=== PATIENT | male | born 1930 | race Caucasian/White ===

== ENCOUNTER 2016-11-10 10:02 | Inpatient (IN) | payer MEDICARE ==
[~2016-11-10] VITALS: Ht 170.2 cm; Wt 70.9 kg
[2016-11-10 10:09] VITALS: BP 126/72; PULSE 80; RESP 15; TEMP 98.3; O2SAT 98
[2016-11-10 11:07] LABS: AUTOMATED NEUTROPHIL # 4.9 TH/MM3 (1.8-7.7); BASOPHIL # 0.1 TH/MM3 (0-0.2); EOSINOPHIL # 0.2 TH/MM3 (0-0.4); EOSINOPHIL % 2.6 % (0.0-4.0); HEMATOCRIT 37.5 % (39.0-51.0); HEMO FLAGS DIFF FINAL; LYMPH % 18.2 % (9.0-44.0); LYMPHOCYTE # 1.3 TH/MM3 (1.0-4.8); MEAN CELL VOLUME 85.8 FL (80.0-100.0); MEAN CORPUSCULAR HEMOGLOBIN 28.9 PG (27.0-34.0); MEAN CORPUSCULAR HGB CONC 33.7 % (32.0-36.0); MONO % 9.1 % (0.0-8.0); NEUT % 69.1 % (16.0-70.0); PLATELET COUNT 127 TH/MM3 (150-450); RED BLOOD COUNT 4.37 MIL/MM3 (4.50-5.90); WHITE BLOOD COUNT 7.2 TH/MM3 (4.0-11.0)
--- NOTE | 2016-11-10 11:11 | RADRPT ---
EXAM DATE/TIME: 11/10/2016 10:58 [facility] COMPARISON: No previous studies available for comparison. INDICATIONS : Weakness. Possible CVA. MEDICAL HISTORY : Unobtainable. SURGICAL HISTORY : Unobtainable. ENCOUNTER: Initial ACUITY: 1 day PAIN SCORE: 2/10 LOCATION: Bilateral chest FINDINGS: A single view of the chest demonstrates the lungs to be symmetrically aerated without evidence of mas s, infiltrate or effusion. The cardiomediastinal contours are unremarkable. Osseous structures are intact. CONCLUSION: The lungs are clear. Alejandro Carter MD on November 10, 2016 at 11:09 Board Certified Radiologist. This report was verified electronically.
[2016-11-10 11:17] LABS: APTT (PATIENT) 29.3 SEC (24.3-30.1); PROTHROMBIN TIME - PATIENT 11.1 SEC (9.8-11.6)
[2016-11-10 11:27] LABS: ANION GAP 9 MEQ/L (5-15); AST (GOT) 13 U/L (15-37); BICARBONATE 26.1 MEQ/L (21.0-32.0); BLOOD UREA NITROGEN 28 MG/DL (7-18); CHLORIDE 105 MEQ/L (98-107); GLOMERULAR FILTRATION RATE 43 ML/MIN (>89); POTASSIUM 4.5 MEQ/L (3.5-5.1); SODIUM (NA) 140 MEQ/L (136-145)
[2016-11-10 11:31] LABS: ALKALINE PHOSPHATASE 97 U/L (45-117); ALT (GPT) 9 U/L (12-78); TOTAL BILIRUBIN ADULT 1.2 MG/DL (0.2-1.0)
--- NOTE | 2016-11-10 11:32 | RADRPT ---
EXAM DATE/TIME: 11/10/2016 11:16 [facility] COMPARISON: No previous studies available for comparison. INDICATIONS : Right lower extremity weakness. RADIATION DOSE: 56.35 CTDIvol (mGy) MEDICAL HISTORY : None SURGICAL HISTORY : None. ENCOUNTER: Initial ACUITY: 1 day PAIN SCALE: 0/10 LOCATION: cranial TECHNIQUE: Multiple contiguous axial images were obtained of the head. Using automated exposure control and adj ustment of the mA and/or kV according to patient size, radiation dose was kept as low as reasonably a chievable to obtain optimal diagnostic quality images. FINDINGS: CEREBRUM: The ventricles are normal for age. No evidence of midline shift, mass lesion, hemorrhage or acute in farction. No extra-axial fluid collections are seen. POSTERIOR FOSSA: The cerebellum and brainstem are intact. The 4th ventricle is midline. The cerebellopontine angle i s unremarkable. EXTRACRANIAL: The visualized portion of the orbits is intact. SKULL: Prominent apparent venous lakes are present in the diploic space in both occipital bones.. CONCLUSION: Intracranial contents are unremarkable. Prominent apparent venous lakes both occipit al bones. Cristhian Sharma MD FACR on November 10, 2016 at 11:29 Board Certified Radiologist. This report was verified electronically.
[2016-11-10 11:41] LABS: CREATINE KINASE 73 U/L (39-308)
[2016-11-10 11:52] VITALS: BP_SYST 170; BP_SYST 175; BP_DIAS 72; BP_DIAS 76; PULSE 44; PULSE 46; RESP 14; O2SAT 97; O2SAT 99
[2016-11-10 11:55] LABS: BLOOD, URINE NEG (NEG); COMMENT (UR) CULT NOT INDICATED; CULTURE IF INDICATED CULT NOT INDICATED; GLUCOSE,URINE NEG (NEG); GRANULAR CAST, URINE 2 /lpf; HYALINE CAST, URINE 1 /lpf (RARE); KETONE, URINE NEG (NEG); MUCUS URINE FEW /lpf (OCC); NITRITE,URINE NEG (NEG); URINE COLOR YELLOW (YELLW/STRAW)
--- NOTE | 2016-11-10 12:40 | PD ---
HPI Chief Complaint: Neuro Symptoms/ Deficits Time Seen by Provider: 11:09 Travel History International Travel<30 days: No Contact w/Intl Traveler<30days: No History of Present Illness HPI Patient is an 86-year-old male with hx of dementia and parkinson's disease; was brought to the emergency room by EMS for evaluation of TIA. As per EMS, family reported acute onset of right-sided weakness, dysarthria - reports that the symptoms lasted for about 5 minutes and resolved on its own. Reports history of TIA in the past. Patient reports that he was walking at the mall today, reports that his right leg felt weak, reports that his whole right side felt weak, family had to assist into a chair, reports that he could not speak well that is happening and symptoms resolved within 5 minutes. Patient denies any headache or dizziness at this time. Patient denies chest pain or shortness of breath. Patient with no fall or trauma to the head or neck. PFSH Past Medical History Tetanus Vaccination: Unknown Influenza Vaccination: Yes Social History Alcohol Use: No Tobacco Use: No Substance Use: No Allergies-Medications (Allergen,Severity, Reaction): Coded Allergies: Penicillin (Verified Allergy, Unknown, 11/10/16) PT HAS UNKNOWN REACTION Reported Meds & Prescriptions Reported Meds & Active Scripts Active Reported Vitamin B-12 (Cyanocobalamin) 2,500 Mcg Subl 2,500 Mcg SL DAILY Sinemet (Carbidopa-Levodopa) 25-100 Mg Tab 1 Tab PO QID Flomax (Tamsulosin HCl) 0.4 Mg Cap 0.4 Mg PO HS Gabapentin 400 Mg Cap 400 Cap PO HS Zantac (Ranitidine HCl) 150 Mg Tab 150 Mg PO DAILY Donepezil 10 Mg Tab 10 Mg PO HS Celebrex (Celecoxib) 200 Mg Cap 200 Mg PO BID Ocuvite (Multiple Vitamins W/ Minerals) 1 Tab 1 Tab PO DAILY Osteo Bi-Flex Regular Strength (Glucosamine-Chondroitin) 250-200 Tab 1 Tab PO DAILY Theratears Unit-Dose Opth Drops (Carboxymethylcellulose Sodium Opth Drops) 0.25 % Soln 1 Drop EACH EYE Q4H PRN Review of Systems General / Constitutional: No: Fever Eyes: No: Visual changes HENT: No: Headaches Cardiovascular: No: Chest Pain or Discomfort Respiratory: No: Shortness of Breath Gastrointestinal: No: Abdominal Pain Genitourinary: No: Dysuria Musculoskeletal: No: Pain Skin: No Rash Neurologic: Positive: Weakness, Slurred Speech Psychiatric: No: Depression Endocrine: No: Polydipsia Hematologic/Lymphatic: No: Easy Bruising Physical Exam Narrative GENERAL: No acute distress, nontoxic SKIN: Focused skin assessment warm/dry. HEAD: Atraumatic. Normocephalic. EYES: Pupils equal and round. No scleral icterus. No injection or drainage. ENT: No nasal bleeding or discharge. Mucous membranes pink and moist. NECK: Trachea midline. No JVD. CARDIOVASCULAR: Regular rate and rhythm. No murmur appreciated. RESPIRATORY: No accessory muscle use. Clear to auscultation. Breath sounds equal bilaterally. GASTROINTESTINAL: Abdomen soft, non-tender, nondistended. Hepatic and splenic margins not palpable. MUSCULOSKELETAL: No obvious deformities. No clubbing. No cyanosis. No edema. NEUROLOGICAL: Awake and alert. No obvious cranial nerve deficits. Motor grossly within normal limits. Normal speech. Cranial nerves II-12 grossly intact with no obvious deficits PSYCHIATRIC: Appropriate mood and affect; insight and judgment normal. Data Data Last Documented VS Vital Signs Date Time Temp Pulse Resp B/P Pulse Ox O2 Delivery O2 Flow Rate FiO2 11/10/16 11:52 Room Air 11/10/16 11:52 44 14 170/76 97 11/10/16 10:09 98.3 Orders Electrocardiogram (11/10/16 10:43) Prothrombin Time / Inr (Pt) (11/10/16 10:43) Act Partial Throm Time (Ptt) (11/10/16 10:43) Complete Blood Count With Diff (11/10/16 10:43) Comprehensive Metabolic Panel (11/10/16 10:43) Creatine Kinase (Cpk) (11/10/16 10:43) Troponin I (11/10/16 10:43) Urinalysis - C+S If Indicated (11/10/16 10:43) Ct Brain W/O Iv Contrast(Rout) (11/10/16 10:43) Chest, Single Ap (11/10/16 10:43) Ecg Monitoring (11/10/16 10:43) Iv Access Insert/Monitor (11/10/16 10:43) Oximetry (11/10/16 10:43) Aspirin (Aspirin) (11/10/16 12:45) Labs Laboratory Tests Test 11/10/16 11/10/16 10:50 11:15 White Blood Count 7.2 TH/MM3 Red Blood Count 4.37 MIL/MM3 Hemoglobin 12.6 GM/DL Hematocrit 37.5 % Mean Corpuscular Volume 85.8 FL Mean Corpuscular Hemoglobin 28.9 PG Mean Corpuscular Hemoglobin 33.7 % Concent Red Cell Distribution Width 14.0 % Platelet Count 127 TH/MM3 Mean Platelet Volume 9.1 FL Neutrophils (%) (Auto) 69.1 % Lymphocytes (%) (Auto) 18.2 % Monocytes (%) (Auto) 9.1 % Eosinophils (%) (Auto) 2.6 % Basophils (%) (Auto) 1.0 % Neutrophils # (Auto) 4.9 TH/MM3 Lymphocytes # (Auto) 1.3 TH/MM3 Monocytes # (Auto) 0.6 TH/MM3 Eosinophils # (Auto) 0.2 TH/MM3 Basophils # (Auto) 0.1 TH/MM3 CBC Comment DIFF FINAL Differential Comment Prothrombin Time 11.1 SEC Prothromb Time International 1.0 RATIO Ratio Activated Partial 29.3 SEC Thromboplast Time Sodium Level 140 MEQ/L Potassium Level 4.5 MEQ/L Chloride Level 105 MEQ/L Carbon Dioxide Level 26.1 MEQ/L Anion Gap 9 MEQ/L Blood Urea Nitrogen 28 MG/DL Creatinine 1.56 MG/DL Estimat Glomerular Filtration 43 ML/MIN Rate Random Glucose 118 MG/DL Calcium Level 8.9 MG/DL Total Bilirubin 1.2 MG/DL Aspartate Amino Transf 13 U/L (AST/SGOT) Alanine Aminotransferase 9 U/L (ALT/SGPT) Alkaline Phosphatase 97 U/L Total Creatine Kinase 73 U/L Troponin I LESS THAN 0.02 NG/ML Total Protein 6.6 GM/DL Albumin 3.5 GM/DL Urine Color YELLOW Urine Turbidity CLEAR Urine pH 5.0 Urine Specific [place] 1.016 Urine Protein TRACE mg/dL Urine Glucose (UA) NEG mg/dL Urine Ketones NEG mg/dL Urine Occult Blood NEG Urine Nitrite NEG Urine Bilirubin NEG Urine Urobilinogen LESS THAN 2.0 MG/DL Urine Leukocyte Esterase NEG Urine RBC 1 /hpf Urine WBC LESS THAN 1 /hpf Urine Hyaline Casts 1 /lpf Urine Granular Casts 2 /lpf Urine Mucus FEW /lpf Microscopic Urinalysis Comment CULT NOT INDICATED MDM Medical Decision Making Medical Screen Exam Complete: Yes Emergency Medical Condition: Yes Interpretation(s) EKG at 1205: sinus aguila at 44bpm, qt/qtc: 436/386, no acute st or t wave changes Vital Signs Date Time Temp Pulse Resp B/P Pulse Ox O2 Delivery O2 Flow Rate FiO2 11/10/16 11:52 Room Air 11/10/16 11:52 44 14 170/76 97 Room Air 11/10/16 11:52 46 14 175/72 99 Room Air 11/10/16 10:09 98.3 80 15 126/72 98 Laboratory Tests Test 11/10/16 11/10/16 10:50 11:15 White Blood Count 7.2 TH/MM3 (4.0-11.0) Red Blood Count 4.37 MIL/MM3 (4.50-5.90) Hemoglobin 12.6 GM/DL (13.0-17.0) Hematocrit 37.5 % (39.0-51.0) Mean Corpuscular Volume 85.8 FL (80.0-100.0) Mean Corpuscular Hemoglobin 28.9 PG (27.0-34.0) Mean Corpuscular Hemoglobin 33.7 % Concent (32.0-36.0) Red Cell Distribution Width 14.0 % (11.6-17.2) Platelet Count 127 TH/MM3 (150-450) Mean Platelet Volume 9.1 FL (7.0-11.0) Neutrophils (%) (Auto) 69.1 % (16.0-70.0) Lymphocytes (%) (Auto) 18.2 % (9.0-44.0) Monocytes (%) (Auto) 9.1 % (0.0-8.0) Eosinophils (%) (Auto) 2.6 % (0.0-4.0) Basophils (%) (Auto) 1.0 % (0.0-2.0) Neutrophils # (Auto) 4.9 TH/MM3 (1.8-7.7) Lymphocytes # (Auto) 1.3 TH/MM3 (1.0-4.8) Monocytes # (Auto) 0.6 TH/MM3 (0-0.9) Eosinophils # (Auto) 0.2 TH/MM3 (0-0.4) Basophils # (Auto) 0.1 TH/MM3 (0-0.2) CBC Comment DIFF FINAL Differential Comment Prothrombin Time 11.1 SEC (9.8-11.6) Prothromb Time International 1.0 RATIO Ratio Activated Partial 29.3 SEC Thromboplast Time (24.3-30.1) Sodium Level 140 MEQ/L (136-145) Potassium Level 4.5 MEQ/L (3.5-5.1) Chloride Level 105 MEQ/L (98-107) Carbon Dioxide Level 26.1 MEQ/L (21.0-32.0) Anion Gap 9 MEQ/L (5-15) Blood Urea Nitrogen 28 MG/DL (7-18) Creatinine 1.56 MG/DL (0.60-1.30) Estimat Glomerular Filtration 43 ML/MIN (>89) Rate Random Glucose 118 MG/DL (74-106) Calcium Level 8.9 MG/DL (8.5-10.1) Total Bilirubin 1.2 MG/DL (0.2-1.0) Aspartate Amino Transf 13 U/L (15-37) (AST/SGOT) Alanine Aminotransferase 9 U/L (12-78) (ALT/SGPT) Alkaline Phosphatase 97 U/L (45-117) Total Creatine Kinase 73 U/L (39-308) Troponin I LESS THAN 0.02 NG/ML (0.02-0.05) Total Protein 6.6 GM/DL (6.4-8.2) Albumin 3.5 GM/DL (3.4-5.0) Urine Color YELLOW (YELLW/STRAW) Urine Turbidity CLEAR (CLEAR) Urine pH 5.0 (5.0-8.5) Urine Specific [place] 1.016 (1.002-1.035) Urine Protein TRACE mg/dL (NEG-TRACE) Urine Glucose (UA) NEG mg/dL (NEG) Urine Ketones NEG mg/dL (NEG) Urine Occult Blood NEG (NEG) Urine Nitrite NEG (NEG) Urine Bilirubin NEG (NEG) Urine Urobilinogen LESS THAN 2.0 MG/DL (LESS THAN 2.0) Urine Leukocyte Esterase NEG (NEG) Urine RBC 1 /hpf (0-3) Urine WBC LESS THAN 1 /hpf (0-5) Urine Hyaline Casts 1 /lpf (RARE) Urine Granular Casts 2 /lpf (NONE) Urine Mucus FEW /lpf (OCC) Microscopic Urinalysis Comment CULT NOT INDICATED Last Impressions Head CT 11/10/16 1043 Signed Impressions: Service Date/Time: Thursday, November 10, 2016 11:16 - CONCLUSION: Intracranial contents are unremarkable. Prominent apparent venous lakes both occipital bones. Cristhian Sharma MD FACR Chest X-Ray 11/10/16 1043 Signed Impressions: Service Date/Time: Thursday, November 10, 2016 10:58 - CONCLUSION: The lungs are clear. Alejandro Carter MD Differential Diagnosis CVA, TIA, intracranial hemorrhage, ACS, electrolyte abnormality Narrative Course Patient is an 86-year-old male who presents to emergency room with complaints of right sided weakness which [place], reports that symptoms lasted for about 5 minutes and resolved on its own. Currently with no neurological deficits while in the stretcher. Patient was placed on a cardiac monitor technician upon arrival to emergency room. CT of the head, lab work, x-ray of the chest, EKG obtained. CBC & BMP Diagram 11/10/16 10:[address] 11/10/16 1043 Signed Impressions: Service Date/Time: Thursday, November 10, 2016 11:16 - CONCLUSION: Intracranial contents are unremarkable. Prominent apparent venous lakes both occipital bones. Cristhian Sharma MD FACR Chest X-Ray 11/10/16 1043 Signed Impressions: Service Date/Time: Thursday, November 10, 2016 10:58 - CONCLUSION: The lungs are clear. Alejandro Carter MD All labs and all studies reviewed with patient as well as his family members at bedside. Discussed need for admission to hospital for today observation. Patient feeling much better at this time with no complaints. Case reviewed with Dr. Oro who accepts pt to service Diagnosis Primary Impression: TIA (transient ischemic attack) Qualified Code: G45.9 - Transient cerebral ischemia, unspecified type Additional Impression: Renal insufficiency Admitting Information Admitting Physician Requests: Observation Heydi Smith DO Nov 10, 2016 12:40 Heydi Smith DO Nov 10, 2016 12:40
[2016-11-10] MEDS ORDERED: ASPIRIN 325 MG TAB PO ONE (12:45)
[2016-11-10] MEDS ORDERED: ZANT150T2 PO (12:52)
[2016-11-10] MEDS ORDERED: OCUVTAB PO (12:52)
[2016-11-10] MEDS ORDERED: CYAN25003 SL (12:52)
[2016-11-10] MEDS ORDERED: OSTETAB3 PO (12:52)
[2016-11-10] MEDS ORDERED: THERSOL2 EACH EYE (12:52)
[2016-11-10] MEDS ORDERED: CELE200C PO (12:52)
[2016-11-10] MEDS ORDERED: GABA400C5 PO (12:52)
[2016-11-10] MEDS ORDERED: TAMS5CAP PO (12:52)
[2016-11-10] MEDS ORDERED: DONE10TA7 PO (12:52)
[2016-11-10] MEDS ORDERED: SINE25TA PO (12:52)
[2016-11-10] MEDS ORDERED: ACETAMINOPHEN 325 MG TAB PO PRN (14:30)
[2016-11-10] MEDS ORDERED: ONDANSETRON HCL 4 MG/2 ML VIAL IVP PRN (14:30)
[2016-11-10] MEDS ORDERED: SODIUM CHLORIDE 0.9% FLUSH 10 ML FLUSH IV FLUSH PRN ×2 (14:30)
[2016-11-10] MEDS ORDERED: NALOXONE HCL 0.4 MG/ML AMP IV PRN (14:30)
--- NOTE | 2016-11-10 14:42 | HHI.HP ---
[facility] Service [facility] Primary Care Physician Unknown Admission Diagnosis TIA Diagnoses: (1) TIA (transient ischemic attack) Diagnosis: Principal (2) Renal insufficiency Diagnosis: Secondary (3) Parkinson disease Diagnosis: Principal (4) BPH (benign prostatic hyperplasia) Diagnosis: Principal Travel History International Travel<30 Days: No Contact w/Intl Traveler <30 Da: No Traveled to Known Affected Are: No History of Present Illness Mr. Medina is an 86 year old male. He has a history of Parkinsons Disease and BPH. He remains ambulatory. While ambulating with his family today, he had an acute onset of right arm and leg flacidity and numbness and incoherent speech. His family called 911 and report that within 5-10 minutes his symptoms had resolved. He can not recall a specific prior motor/speech related event. He has had transient events related to balance and memory before. When seen in the ER, he is at baseline status. No complaints of headache or residual deficits. Review of Systems Constitutional: DENIES: Fever, Weight gain, Weight loss, Night Sweats Endocrine: DENIES: Heat/cold intolerance, Polyuria Eyes: DENIES: Blurred vision, Eye pain, Vision loss, Photosensitivity Ears, nose, mouth, throat: DENIES: Tinnitus, Hearing loss, Nasal discharge Respiratory: DENIES: Apneas, Wheezing, Hemoptysis Cardiovascular: DENIES: Chest pain, Palpitations, Syncope Gastrointestinal: DENIES: Abdominal pain, Diarrhea, Nausea, Vomiting Musculoskeletal: COMPLAINS OF: Stiffness, DENIES: Joint pain Integumentary: DENIES: Rash Neurologic: DENIES: Headache, Seizures Psychiatric: DENIES: Anxiety, Confusion, Mood changes Neuro: Global deficits related to Parkinsons Disease, but no focal deficits remain on my exam. Strength is 4/5 globally. Equally reactive pupils to light. Past Family Social History Past Medical History Parkinson's Disease BPH Reported Medications Reported Meds & Active Scripts Active Reported Vitamin B-12 (Cyanocobalamin) 2,500 Mcg Subl 2,500 Mcg SL DAILY Sinemet (Carbidopa-Levodopa) 25-100 Mg Tab 1 Tab PO QID Flomax (Tamsulosin HCl) 0.4 Mg Cap 0.4 Mg PO HS Gabapentin 400 Mg Cap 400 Cap PO HS Zantac (Ranitidine HCl) 150 Mg Tab 150 Mg PO DAILY Donepezil 10 Mg Tab 10 Mg PO HS Celebrex (Celecoxib) 200 Mg Cap 200 Mg PO BID Ocuvite (Multiple Vitamins W/ Minerals) 1 Tab 1 Tab PO DAILY Osteo Bi-Flex Regular Strength (Glucosamine-Chondroitin) 250-200 Tab 1 Tab PO DAILY Theratears Unit-Dose Opth Drops (Carboxymethylcellulose Sodium Opth Drops) 0.25 % Soln 1 Drop EACH EYE Q4H PRN Allergies: Coded Allergies: Penicillin (Verified Allergy, Unknown, 11/10/16) PT HAS UNKNOWN REACTION Active Ordered Medications Current Medications Aspirin (Aspirin) 325 mg ONCE ONCE PO ; Start 11/10/16 at 12:45; Stop 11/10/16 at 12:46; Status DC Sodium Chloride (NS Flush) 2 ml UNSCH PRN IV FLUSH FLUSH AFTER USING IV ACCESS ; Start 11/10/16 at 14:30; Status UNV Sodium Chloride (NS Flush) 2 ml BID IV FLUSH ; Start 11/10/16 at 21:00; Status UNV Acetaminophen (Tylenol) 650 mg Q4H PRN PO TEMP > 100.4; Start 11/10/16 at 14:30 Ondansetron HCl (Zofran Inj) 4 mg Q6H PRN IVP NAUSEA OR VOMITING; Start at 14:30; Status UNV Naloxone HCl (Narcan Inj) 0.4 mg UNSCH PRN IV SEE LABEL COMMENTS; Start at 14:30 Family History CVA Social History Distant history of smoking No current smoking No current alcohol No current drug abuse Physical Exam Vital Signs Vital Signs Date Time Temp Pulse Resp B/P Pulse Ox O2 Delivery O2 Flow Rate FiO2 11/10/16 11:52 Room Air 11/10/16 11:52 44 14 170/76 97 Room Air 11/10/16 11:52 46 14 175/72 99 Room Air 11/10/16 10:09 98.3 80 15 126/72 98 Physical Exam GENERAL: This is a well-nourished, well-developed patient, in no apparent distress. SKIN: No rashes, ecchymoses or lesions. Cool and dry. HEAD: Atraumatic. Normocephalic. No temporal or scalp tenderness. EYES: Pupils equal round and reactive. Extraocular motions intact. No scleral icterus. No injection or drainage. ENT: Nose without bleeding, purulent drainage or septal hematoma. Throat without erythema, tonsillar hypertrophy or exudate. Uvula midline. Airway patent. NECK: Trachea midline. No JVD or lymphadenopathy. Supple, nontender, no meningeal signs. CARDIOVASCULAR: Regular rate and rhythm without murmurs, gallops, or rubs. RESPIRATORY: Clear to auscultation. Breath sounds equal bilaterally. No wheezes , rales, or rhonchi. GASTROINTESTINAL: Abdomen soft, non-tender, nondistended. No hepato-splenomegaly , or palpable masses. No guarding. MUSCULOSKELETAL: Extremities without clubbing, cyanosis, or edema. No joint tenderness, effusion, or edema noted. No calf tenderness. Negative Homans sign bilaterally. NEUROLOGICAL: Awake and alert. Cranial nerves II through XII intact. Motor and sensory grossly within normal limits. Five out of 5 muscle strength in all muscle groups. Normal speech. Laboratory Laboratory Tests Test 11/10/16 11/10/16 10:50 11:15 White Blood Count 7.2 Red Blood Count 4.37 Hemoglobin 12.6 Hematocrit 37.5 Mean Corpuscular Volume 85.8 Mean Corpuscular Hemoglobin 28.9 Mean Corpuscular Hemoglobin 33.7 Concent Red Cell Distribution Width 14.0 Platelet Count 127 Mean Platelet Volume 9.1 Neutrophils (%) (Auto) 69.1 Lymphocytes (%) (Auto) 18.2 Monocytes (%) (Auto) 9.1 Eosinophils (%) (Auto) 2.6 Basophils (%) (Auto) 1.0 Neutrophils # (Auto) 4.9 Lymphocytes # (Auto) 1.3 Monocytes # (Auto) 0.6 Eosinophils # (Auto) 0.2 Basophils # (Auto) 0.1 CBC Comment DIFF FINAL Differential Comment Prothrombin Time 11.1 Prothromb Time International 1.0 Ratio Activated Partial 29.3 Thromboplast Time Sodium Level 140 Potassium Level 4.5 Chloride Level 105 Carbon Dioxide Level 26.1 Anion Gap 9 Blood Urea Nitrogen 28 Creatinine 1.56 Estimat Glomerular Filtration 43 Rate Random Glucose 118 Calcium Level 8.9 Total Bilirubin 1.2 Aspartate Amino Transf 13 (AST/SGOT) Alanine Aminotransferase 9 (ALT/SGPT) Alkaline Phosphatase 97 Total Creatine Kinase 73 Troponin I LESS THAN 0.02 Total Protein 6.6 Albumin 3.5 Urine Color YELLOW Urine Turbidity CLEAR Urine pH 5.0 Urine Specific [place] 1.016 Urine Protein TRACE Urine Glucose (UA) NEG Urine Ketones NEG Urine Occult Blood NEG Urine Nitrite NEG Urine Bilirubin NEG Urine Urobilinogen LESS THAN 2.0 Urine Leukocyte Esterase NEG Urine RBC 1 Urine WBC LESS THAN 1 Urine Hyaline Casts 1 Urine Granular Casts 2 Urine Mucus FEW Microscopic Urinalysis Comment CULT NOT INDICATED Result Diagram: 11/10/16 1050 11/10/16 1050 Imaging Last Impressions Head CT 11/10/16 1043 Signed Impressions: Service Date/Time: Thursday, November 10, 2016 11:16 - CONCLUSION: Intracranial contents are unremarkable. Prominent apparent venous lakes both occipital bones. Cristhian Sharma MD FACR Chest X-Ray 11/10/16 1043 Signed Impressions: Service Date/Time: Thursday, November 10, 2016 10:58 - CONCLUSION: The lungs are clear. Alejandro Carter MD Assessment and Plan Problem List: (1) TIA (transient ischemic attack) ICD Code: G45.9 Status: Acute Plan: Observation admit Neurology consult MRI Brain Carotic Ultrasound Aspirin Daily Statin Follow closely with neurochecks Monitor for recurrence of symptoms (2) Renal insufficiency ICD Code: N28.9 Status: Acute Plan: Light IV Hydration Likely related to CKD or mild dehydration Follow renal function (3) Parkinson disease ICD Code: G20 Status: Acute Plan: Continue baseline treatments No evidence of exacerbation (4) BPH (benign prostatic hyperplasia) ICD Code: N40.0 Status: Acute Plan: Continue baseline treatment Follow clinically Code Status Full Code Physician Certification 2 Midnight Certification Type: Continued Stay Order for Inpatient Services The services are ordered in accordance with Medicare regulations or non- Medicare payer requirements, as applicable. In the case of services not specified as inpatient-only, they are appropriately provided as inpatient services in accordance with the 2-midnight benchmark. Estimated LOS (days): 1 days is the estimated time the patient will need to remain in the hospital, assuming treatment plan goals are met and no additional complications. Post-Hospital Plan: Home (Observation Status) Problem Qualifiers (1) TIA (transient ischemic attack): Qualified Code: G45.9 - Transient cerebral ischemia, unspecified type Navarro Oro MD Nov 10, 2016 14:42
[2016-11-10 17:00] VITALS: BP 162/82; PULSE 48; RESP 16; O2SAT 97
[2016-11-10] MEDS ORDERED: SODIUM CHLOR 0.9% 1000 ML INJ 1,000 ML IV SCH (17:00)
[2016-11-10] MEDS ORDERED: PILL SPLITTER OTHER PRN (17:15)
[2016-11-10] MEDS ORDERED: ARTIFICIAL TEARS OPTH SOLN 15 ML BTL EACH EYE PRN (17:15)
--- NOTE | 2016-11-10 17:46 | RADRPT ---
EXAM DATE/TIME: 11/10/2016 16:20 [facility] COMPARISON: No previous studies available for comparison. INDICATIONS : Cerebrovascular accident. MEDICAL HISTORY : Benign prostatic hyperplasia, (BPH) Parkinson's. Muscle stiffness. TIA. Renal insufficiency. SURGICAL HISTORY : None. ENCOUNTER: Initial ACUITY: 1 day PAIN SCORE: 0/10 LOCATION: Bilateral neck PEAK SYSTOLIC VELOCITIES (cm/sec): ICA/CCA RATIO: Right: 1.2 Left: 1.2 ICA: Right: 78 Left: 104 CCA: Right: 66 Left: 88 ECA: Right: 96 Left: 94 VERTEBRAL: Right: 39 antegrade Left: 53 antegrade Elevated flow velocities and ICA/CCA ratios have been found to correlate with increased degrees of vessel stenosis, calculated as percentage of diameter relative to a normal segment of distal ICA/CCA FINDINGS: RIGHT CAROTID: No significant stenosis is visualized. Minimal calcification in the carotid bulb and proximal pediatric genetic counselor al carotid artery. The waveforms are within normal limits. LEFT CAROTID: No significant stenosis is visualized. The waveforms are within normal limits. VERTEBRAL ARTERIES: Antegrade flow is seen in both vertebral arteries. CONCLUSION: There is a mild calcification in the region of the right carotid bulb. Hemodynamic profile on both s ides is characteristic of less than 50% stenosis. Alejandro Carter MD on November 10, 2016 at 17:42 Board Certified Radiologist. This report was verified electronically.
[2016-11-10 17:51] VITALS: BP 173/85; TEMP 98.4
[2016-11-10 18:30] VITALS: BP_SYST 200; BP_SYST 232; BP_DIAS 102; BP_DIAS 90; PULSE 48; RESP 20; TEMP 96.2; O2SAT 96
[2016-11-10] MEDS: CARBIDOPA/LEVODOPA 25 MG/100 MG TAB PO SCH ×2 (18:44→23:16)
[2016-11-10] MEDS: ENALAPRILAT 1.25 MG/ML VIAL IV PRN (18:45)
[2016-11-10 20:00] VITALS: BP 176/70; PULSE 46; RESP 18; TEMP 96.3; O2SAT 95
[2016-11-10] MEDS: SODIUM CHLOR 0.9% 1000 ML INJ 1,000 ML IV SCH (20:00)
[2016-11-10] MEDS ORDERED: SODIUM CHLORIDE 0.9% FLUSH 10 ML FLUSH IV FLUSH SCH (21:00)
[2016-11-10] MEDS: SODIUM CHLORIDE 0.9% FLUSH 10 ML FLUSH IV FLUSH SCH (21:00)
[2016-11-10 21:52] LABS: FREE T4 0.89 NG/DL (0.76-1.46); HDL CHOLESTEROL 35.5 MG/DL (40.0-60.0); LDL CHOLESTEROL 81 MG/DL (0-99)
--- NOTE | 2016-11-10 22:27 | MB ---
cc: SHAYLA JIMENEZ DATE OF CONSULTATION: 11/10/2016 REASON FOR CONSULTATION: HISTORY OF PRESENT ILLNESS: The patient is an 86-year-old right-handed man with a history of hypertension, up to 216/110, Parkinson's disease, some dementia, on Aricept and Sinemet, hypercholesterolemia. He has had some balance problems, a few falls in the last year, and it was noted today that he was not moving his right foot well. They sat him in a chair and his right leg seemed limp and he had some difficulty speaking. It lasted about five minutes and resolved. No chest pain or palpitations. He does not take an aspirin a day or any blood thinners. REVIEW OF SYSTEMS: His family denies any diabetes, [place], CABG, stent, angioplasty, A-fib, Coumadin, renal, hepatic or pulmonary disease, thyroid disease, lupus, ulcer, cancer, seizure or stroke. SOCIAL HISTORY: He is not a smoker or drinker. He lives with his . He is down here, I believe a snow bird, lives up in [place]. FAMILY HISTORY: Negative for cancer, seizure or stroke. MEDICATIONS AT HOME 1. Oral B12. 2. Sinemet 25/100 q.i.d. roughly 8, noon, 4 and 8. 3. Flomax. 4. Neurontin 400 at bed time. 5. Zantac 6. Aricept 10 at bed time. 7. Celebrex. PHYSICAL EXAMINATION: GENERAL: Blood pressure has been 175/72, he has been in sinus rhythm, 48, 44 is his lowest heart rate. O2 sats are normal, afebrile. There were no carotid bruits. HEART: Regular rhythm. I did not detect a murmur. Pupils equal. Visual davison full. Extraocular movements intact without nystagmus. Face symmetric with normal sensation. Tongue was midline. There was no drift. He had normal strength in the upper and lower extremities bilaterally. DTRs are 2+ symmetric at the knees. Toes were downgoing bilaterally. Pinprick is intact throughout. Speech is fluent. He is not aphasic. He knows the year, he had difficulty with the month. He knows he lives in [place], [place]. He could not come up with where he lives down here. He does have some dementia. He follows commands well. He does not appear to be aphasic at this time. He has some minimal cogwheel rigidity in the bilateral upper extremities, he has some Gegenhalten in the bilateral lower extremities. LABORATORY DATA: CBC is normal. Basic metabolic profile, creatinine 1.56, otherwise normal. Glucose 118. LFTs, CPK, troponin, albumin, coags, UA, all normal. IMAGING STUDIES: CT scan of the brain was negative. Carotid ultrasound was normal. Chest x-ray was clear. IMPRESSION: Certainly sounds like a TIA. Will put him on 325 of aspirin for now. Will check an echocardiogram and Holter. MRI of the brain, MRA of the neck and lower elwha of George. I will be following him with you in the hospital. Will also check his lipid profile, although he has been put on a statin I note already. He was not on one at home. Will have PT ambulate him. He has some dementia. We could add on Namenda in the future and maybe fine tune his Parkinson's as he does not walk well. As far as his tremors go, he has a mild essential tremor, some bradykinesia. MD CHAIM Zarate/DAVID /7:02 PM /9:32 PM
[2016-11-10] MEDS: GABAPENTIN 300 MG CAP PO SCH (23:16)
[2016-11-10] MEDS: FAMOTIDINE 20 MG TAB PO SCH (23:16)
[2016-11-10] MEDS: ATORVASTATIN 10 MG TAB PO SCH (23:17)
[2016-11-10] MEDS: TAMSULOSIN HCL 0.4 MG CAP PO SCH (23:17)
[2016-11-10] MEDS: DONEPEZIL HCL 5 MG TAB PO SCH (23:17)
[2016-11-10] MEDS: CELECOXIB 200 MG CAP PO SCH (23:19)
[2016-11-11] VITALS (8 sets, daily range): BP systolic 119–202; BP diastolic 52–80; PULSE 37–76; RESP 18–20; TEMP 95.6–97; O2SAT 96–99
--- NOTE | 2016-11-11 00:13 | RADRPT ---
EXAM DATE/TIME: 11/10/2016 23:38 [facility] COMPARISON: CT BRAIN W/O CONTRAST, November 10, 2016, 11:16. INDICATIONS : CVA. MEDICAL HISTORY : Parkinson's. Dementia. SURGICAL HISTORY : Discectomy, lumbar. ENCOUNTER: Initial ACUITY: 2 day PAIN SCORE: Nonresponsive. LOCATION: Bilateral cranial Please note a normal MRA of the brain does not entirely exclude the possibility of a small aneurysm, nor the possibility of distal intracranial vessel disease. TECHNIQUE: 3D time of flight MRA was performed. Source images, multiplanar STS MIP, and 3D volume MIP reconstru ctions were reviewed. FINDINGS: There is excellent visualization of the major intracranial arteries out to the second-order branch ve ssels. There is no evidence for aneurysm. No evidence for vascular malformation. After the basilar bifurcation both posterior cervical artery P1 segments are unremarkable although th ere is some narrowing of both P2 segments right greater than left. At the right internal carotid bifurcation the right M1 segment is narrowed by least 50%. There is gomez rowing of the left anterior cerebral artery after its origin from the right carotid bifurcation. Both A2 segments are identified with a patent anterior communicating artery CONCLUSION: Narrowing involving the right P2, right M1, and left A1 segments of uncertain significance. No obviou s aneurysm. Marshall Huber MD on November 11, 2016 at 0:10 Board Certified Radiologist. This report was verified electronically.
--- NOTE | 2016-11-11 00:26 | RADRPT ---
EXAM DATE/TIME: 11/10/2016 23:38 [facility] COMPARISON: CT BRAIN W/O CONTRAST, November 10, 2016, 11:16. INDICATIONS : CVA. CONTRAST: 20 cc Multihance (gadobenate) IV MEDICAL HISTORY : Parkinson's. Dementia. SURGICAL HISTORY : Discectomy, lumbar. ENCOUNTER: Initial ACUITY: 2 day PAIN SCORE: Nonresponsive. LOCATION: Bilateral cranial TECHNIQUE: Multiplanar, multisequence MRI of the brain was performed both prior to and following the administrat ion of paramagnetic contrast. FINDINGS: CEREBRUM: The ventricles are normal for age. No evidence of midline shift, mass lesion, hemorrhage or acute in farction. No extraaxial fluid collections are seen. The pituitary gland and suprasellar cistern are normal in configuration. WHITE MATTER: No significant signal abnormalities are seen in the white matter. POSTERIOR FOSSA: The cerebellum and brainstem are intact. The 4th ventricle is midline. The cerebellopontine angle is unremarkable. The cerebellar tonsils are normal in position. DIFFUSION IMAGING: No focal areas of restricted diffusion are seen. No evidence of acute infarction. EXTRACRANIAL: The visualized portions of the orbits and paranasal sinuses are unremarkable. POST-CONTRAST: No abnormal areas of parenchymal or dural enhancement. No evidence of blood-brain barrier breakdown. CONCLUSION: Normal examination. Marshall Huber MD on November 11, 2016 at 0:24 Board Certified Radiologist. This report was verified electronically.
[2016-11-11] MEDS ORDERED: GADOBENATE DIM PF 529 MG/ML 20ML VIAL (for RAD MRI) IV ONE (00:53)
--- NOTE | 2016-11-11 01:01 | RADRPT ---
EXAM DATE/TIME: 11/10/2016 23:38 [facility] COMPARISON: No previous studies available for comparison. INDICATIONS : CVA CONTRAST: 20 cc Multihance (gadobenate) IV MEDICAL HISTORY : Parkinson's. Dementia. SURGICAL HISTORY : Discectomy, lumbar. ENCOUNTER: Initial ACUITY: 2 day PAIN SCORE: Nonresponsive. LOCATION: Bilateral cranial Percent stenosis is calculated using the diameter of the stenotic region over the diameter of the nor mal distal internal carotid artery. TECHNIQUE: Bolus infused MRA of the extracranial circulation was performed using a neurovascular coil. Post pro cessing was performed including rotating subvolume maximum intensity projections of each carotid maikel ry, rotating full volume maximum intensity projections of both carotid arteries, sagittal and coronal sliding thin slab reformations of each carotid artery, and left oblique sliding thin slab reformatio n through the aortic arch to include the origin of the arch branch vessels. FINDINGS: AORTIC ARCH: There is a three vessel origin of the great vessels from the aorta. No evidence of ostial narrowing. RIGHT CAROTID: The common carotid artery is intact. The carotid bulb has a normal configuration without ulceration or narrowing. The internal carotid artery lumen is smooth without stenosis. The external carotid ar geovany is intact. LEFT CAROTID: The common carotid artery is intact. The carotid bulb has a normal configuration without ulceration or narrowing. The internal carotid artery lumen is smooth without stenosis. The external carotid ar geovany is intact. VERTEBRALS: The vertebral arteries have a symmetric diameter. No stenotic lesions are seen. CONCLUSION: Normal examination. Marshall Huber MD on November 11, 2016 at 1:00 Board Certified Radiologist. This report was verified electronically.
[2016-11-11] MEDS ORDERED: GADODIAMIDE PF 287 MG/ML 5 ML VIAL (for RAD MRI) IV ONE (01:39)
--- NOTE | 2016-11-11 07:54 | HHI.PR ---
Subjective Remarks sb 30s Objective Vital Signs Date Time Temp Pulse Resp B/P Pulse Ox O2 Delivery O2 Flow Rate FiO2 11/11/16 04:00 95.7 45 18 133/62 96 11/11/16 00:00 96.1 44 18 119/52 99 125/63 Manual Cuff/Palpation 11/10/16 20:00 96.3 46 18 176/70 95 11/10/16 18:30 96.2 48 20 232/102 96 232/102 200/90 11/10/16 17:51 98.4 46 14 173/85 97 11/10/16 17:00 48 16 162/82 97 Room Air 11/10/16 11:52 Room Air 11/10/16 11:52 44 14 170/76 97 Room Air 11/10/16 11:52 46 14 175/72 99 Room Air 11/10/16 10:09 98.3 80 15 126/72 98 I/O 11/10/16 11/10/16 11/10/16 11/11/16 11/11/16 11/11/16 07:00 15:00 23:00 07:00 15:00 23:00 Output Total 300 ml Balance -300 ml Output Urine Total 300 ml # Voids 1 # Bowel Movements 0 0 Result Diagram: 11/10/16 1050 11/10/16 1050 Other Results mri no old or new cva mra some ? r mca dz asx mra neck nl b12 inc esr pend Objective Remarks awake confused aguila moves all well speech clear Assessment and Plan Assessment and Plan imp major left mca tia asa ldl ok could dc statin have cards see for ?sss fu echo oob ambulate i can fu office for dementia and pd and try and tune up PT could dc if holter on and echo neg and cards clears and on 325 asa a day if bp stable and nl all day as way too high last pm so prob dc tomorrow Mike Adams MD Nov 11, 2016 07:54
[2016-11-11] MEDS: CARBIDOPA/LEVODOPA 25 MG/100 MG TAB PO SCH ×4 (08:49→22:59)
[2016-11-11] MEDS: CYANOCOBALAMIN 1,000 MCG TAB PO SCH (08:49)
[2016-11-11] MEDS: CELECOXIB 200 MG CAP PO SCH ×2 (08:49→23:00)
[2016-11-11] MEDS: MULTIVITAMIN-OPHTHALMIC 1 TAB PO SCH (08:49)
[2016-11-11] MEDS: FAMOTIDINE 20 MG TAB PO SCH ×2 (08:50→22:59)
[2016-11-11] MEDS: ASPIRIN EC 325 MG TABEC PO SCH (08:55)
[2016-11-11] MEDS: ENALAPRILAT 1.25 MG/ML VIAL IV PRN (08:55)
[2016-11-11] MEDS: SODIUM CHLORIDE 0.9% FLUSH 10 ML FLUSH IV FLUSH SCH ×2 (08:56→21:00)
[2016-11-11] MEDS: SODIUM CHLOR 0.9% 1000 ML INJ 1,000 ML IV SCH ×2 (08:56→16:15)
[2016-11-11] MEDS ORDERED: ASPIRIN 81 MG CHEW TAB PO SCH (09:00)
[2016-11-11] MEDS ORDERED: GLUCOSAMINE CHONDROITIN PO SCH (09:00)
[2016-11-11 09:06] LABS: AUTOMATED NEUTROPHIL # 4.5 TH/MM3 (1.8-7.7); BASOPHIL # 0.1 TH/MM3 (0-0.2); EOSINOPHIL # 0.2 TH/MM3 (0-0.4); EOSINOPHIL % 2.5 % (0.0-4.0); HEMATOCRIT 40.9 % (39.0-51.0); HEMO FLAGS DIFF FINAL; LYMPH % 14.5 % (9.0-44.0); LYMPHOCYTE # 0.9 TH/MM3 (1.0-4.8); MEAN CELL VOLUME 85.6 FL (80.0-100.0); MEAN CORPUSCULAR HEMOGLOBIN 28.3 PG (27.0-34.0); MONO % 9.8 % (0.0-8.0); NEUT % 72.2 % (16.0-70.0); PLATELET COUNT 134 TH/MM3 (150-450); RED BLOOD COUNT 4.78 MIL/MM3 (4.50-5.90); RED CELL DISTRIBUTION WIDTH 13.9 % (11.6-17.2); WHITE BLOOD COUNT 6.3 TH/MM3 (4.0-11.0)
[2016-11-11 09:37] LABS: BICARBONATE 29.5 MEQ/L (21.0-32.0); HDL CHOLESTEROL 33.5 MG/DL (40.0-60.0); POTASSIUM 4.6 MEQ/L (3.5-5.1)
--- NOTE | 2016-11-11 11:01 | PD.CONS ---
HPI Service Cardiology Consult Requested By Primary Care Physician Unknown History of Present Illness 86 y/o M with pmhx significant for Parkinson Disease, GERD and BPH admitted after an acute episode of right arm and leg weakness/numbness associated with aphasia. Symptoms resolved without intervention. No CV complaints. Cardiology has been consulted for bradycardia in the EKG and TIA. Per patient his heart rate always runs low. Neurology following. Head imaging studies unremarkable. ECHO pending. Review of Systems Consitutional: DENIES: Fatigue, Fever, Chills, Weight gain, Weight loss Eyes: DENIES: Amaurosis Fugax, Change in vision HEENT: DENIES: Lightheadedness, Change in hearing Respiratory: DENIES: See HPI, Cough, Snoring, Shortness of breath, Wheezing, Sputum production Cardiovascular: DENIES: See HPI, Chest pain, Palpitations, Syncope, Tachycardia Gastrointestinal: DENIES: Nausea, Vomiting, Change in bowel habits, Reflux, Bloody stools, Melena Genitourinary: DENIES: Urinary incontinence, Difficulty voiding Integumentary: DENIES: Rash Neurologic: DENIES: Tingling or numbness, Memory problems, Poor Balance, Stroke symptoms Musculoskeletal: DENIES: Joint pain, Muscle pain, Limited range of motion, Back pain Psychiatric: DENIES: Anxiety, Depression, Sleep disturbances Hematologic: DENIES: Bruising tendencies, Bleeding tendencies Endocrine: DENIES: Weight gain, Weight loss, Thyroid disease Past Family Social History Allergies: Coded Allergies: Penicillin (Verified Allergy, Unknown, 11/10/16) PT HAS UNKNOWN REACTION Past Medical History PD BPH Reported Medications Reported Meds & Active Scripts Active Reported Vitamin B-12 (Cyanocobalamin) 2,500 Mcg Subl 2,500 Mcg SL DAILY Sinemet (Carbidopa-Levodopa) 25-100 Mg Tab 1 Tab PO QID Flomax (Tamsulosin HCl) 0.4 Mg Cap 0.4 Mg PO HS Gabapentin 400 Mg Cap 400 Cap PO HS Zantac (Ranitidine HCl) 150 Mg Tab 150 Mg PO DAILY Donepezil 10 Mg Tab 10 Mg PO HS Celebrex (Celecoxib) 200 Mg Cap 200 Mg PO BID Ocuvite (Multiple Vitamins W/ Minerals) 1 Tab 1 Tab PO DAILY Osteo Bi-Flex Regular Strength (Glucosamine-Chondroitin) 250-200 Tab 1 Tab PO DAILY Theratears Unit-Dose Opth Drops (Carboxymethylcellulose Sodium Opth Drops) 0.25 % Soln 1 Drop EACH EYE Q4H PRN Active Ordered Medications Current Medications Medications (Trade) Dose Ordered Sig/Damian Route Start Time Stop Time Status Last Admin (Tylenol) 650 mg Q4H PRN PO 11/10/16 14:30 (Zofran Inj) 4 mg Q6H PRN IVP 11/10/16 14:30 (Narcan Inj) 0.4 mg UNSCH PRN IV 11/10/16 14:30 (NS Flush) 2 ml BID IV FLUSH 11/10/16 21:00 11/11/16 08:56 (NS Flush) 2 ml UNSCH PRN IV FLUSH 11/10/16 14:30 (Vasotec Inj) 1.25 mg Q4H PRN IV 11/10/16 14:30 11/11/16 08:55 (Lipitor) 10 mg HS PO 11/10/16 21:00 11/10/16 23:17 (Sinemet 25-100 Mg) 1 tab QID PO 11/10/16 18:00 11/11/16 08:49 (CeleBREX) 200 mg BID PO 11/10/16 21:00 11/11/16 08:49 (Vitamin B12) 2,500 mcg DAILY PO 11/11/16 09:00 11/11/16 08:49 (Aricept) 10 mg HS PO 11/10/16 21:00 11/10/16 23:17 (Neurontin) 300 mg HS PO 11/10/16 21:00 11/10/16 23:16 (Ocuvite) 1 tab DAILY PO 11/11/16 09:00 11/11/16 08:49 (Flomax) 0.4 mg HS PO 11/10/16 21:00 11/10/16 23:17 (Tears Naturale Opth Soln) 1 drop Q4H PRN EACH EYE 11/10/16 17:15 (Pepcid) 10 mg BID PO 11/10/16 21:00 11/11/16 08:50 (Pill Splitter) 1 ea UNSCH PRN OTHER 11/10/16 17:15 11/11/16 08:49 Aspirin 325 mg 325 mg DAILY PO 11/11/16 09:00 11/11/16 08:55 (NS 1000 ml Inj) 1,000 ml @ 75 mls/hr [id number] IV 11/10/16 20:00 11/11/16 08:56 Physical Exam Vital Signs Vital Signs Date Time Temp Pulse Resp B/P Pulse Ox O2 Delivery O2 Flow Rate FiO2 11/11/16 08:08 96.4 76 20 201/80 97 11/11/16 04:00 95.7 45 18 133/62 96 11/11/16 03:30 37 11/11/16 00:00 96.1 44 18 119/52 99 125/63 Manual Cuff/Palpation 11/10/16 20:00 96.3 46 18 176/70 95 11/10/16 18:30 96.2 48 20 232/102 96 232/102 200/90 11/10/16 17:51 98.4 46 14 173/85 97 11/10/16 17:00 48 16 162/82 97 Room Air 11/10/16 11:52 Room Air 11/10/16 11:52 44 14 170/76 97 Room Air 11/10/16 11:52 46 14 175/72 99 Room Air Physical Exam GENERAL: Well-nourished, well-developed patient. SKIN: Warm and dry. HEAD: Normocephalic. EYES: No scleral icterus. No injection or drainage. NECK: Supple, trachea midline. No JVD or lymphadenopathy. CARDIOVASCULAR: Regular rate and rhythm without murmurs, gallops, or rubs. RESPIRATORY: Breath sounds equal bilaterally. No accessory muscle use. GASTROINTESTINAL: Abdomen soft, non-tender, nondistended. EXTREMITIES: No cyanosis, or edema. NEUROLOGICAL: Awake, alert, and oriented x 3. Non-focal. Laboratory Laboratory Tests Test 11/10/16 11/11/16 11/11/16 11:15 07:31 08:31 Urine Color YELLOW Urine Turbidity CLEAR Urine pH 5.0 Urine Specific [place] 1.016 Urine Protein TRACE Urine Glucose (UA) NEG Urine Ketones NEG Urine Occult Blood NEG Urine Nitrite NEG Urine Bilirubin NEG Urine Urobilinogen LESS THAN 2.0 Urine Leukocyte Esterase NEG Urine RBC 1 Urine WBC LESS THAN 1 Urine Hyaline Casts 1 Urine Granular Casts 2 Urine Mucus FEW Microscopic Urinalysis Comment CULT NOT INDICATED White Blood Count 6.3 Red Blood Count 4.78 Hemoglobin 13.5 Hematocrit 40.9 Mean Corpuscular Volume 85.6 Mean Corpuscular Hemoglobin 28.3 Mean Corpuscular Hemoglobin 33.0 Concent Red Cell Distribution Width 13.9 Platelet Count 134 Mean Platelet Volume 8.7 Neutrophils (%) (Auto) 72.2 Lymphocytes (%) (Auto) 14.5 Monocytes (%) (Auto) 9.8 Eosinophils (%) (Auto) 2.5 Basophils (%) (Auto) 1.0 Neutrophils # (Auto) 4.5 Lymphocytes # (Auto) 0.9 Monocytes # (Auto) 0.6 Eosinophils # (Auto) 0.2 Basophils # (Auto) 0.1 CBC Comment DIFF FINAL Differential Comment Erythrocyte Sedimentation Rate 7 Sodium Level 141 Potassium Level 4.6 Chloride Level 105 Carbon Dioxide Level 29.5 Anion Gap 7 Blood Urea Nitrogen 22 Creatinine 1.35 Estimat Glomerular Filtration 50 Rate Random Glucose 95 Calcium Level 9.2 Triglycerides Level 202 Cholesterol Level 173 LDL Cholesterol 99 HDL Cholesterol 33.5 Cholesterol/HDL Ratio 5.16 Result Diagram: 11/11/16 0731 11/11/16 0831 Imaging Last Impressions Head Magnetic Resonance Angiography 11/10/16 193 Signed Impressions: Service Date/Time: Thursday, November 10, 2016 23:38 - CONCLUSION: Narrowing involving the right P2, right M1, and left A1 segments of uncertain significance. No obvious aneurysm. Marshall Huber MD Neck Magnetic Resonance Angiography 11/10/161902 Signed Impressions: Service Date/Time: Thursday, November 10, 2016 23:38 - CONCLUSION: Normal examination. Marshall Huber MD Brain MRI 11/10/161902 Signed Impressions: Service Date/Time: Thursday, November 10, 2016 23:38 - CONCLUSION: Normal examination. Marshall Huber MD Head CT 11/10/161042 Signed Impressions: Service Date/Time: Thursday, November 10, 2016 11:16 - CONCLUSION: Intracranial contents are unremarkable. Prominent apparent venous lakes both occipital bones. Cristhian Sharma MD FACR Chest X-Ray 11/10/161042 Signed Impressions: Service Date/Time: Thursday, November 10, 2016 10:58 - CONCLUSION: The lungs are clear. Alejandro Carter MD Carotid Artery Ultrasound 11/10/16 0000 Signed Impressions: Service Date/Time: Thursday, November 10, 2016 16:20 - CONCLUSION: There is a mild calcification in the region of the right carotid bulb. Hemodynamic profile on both sides is characteristic of less than 50%% stenosis. Alejandro Carter MD Assessment and Plan Problem List: (1) TIA (transient ischemic attack) Assessment and Plan: TIA and asymptomatic bradycardia. Recommendations: Cont statin Cont ASA Echo pending. Agree with Holter upon d/c Consider d/c Aricept given bradycardia Thank you for the opportunity to take part in the care of this patient Will be available on a PRN basis for further questions or concerns (2) Parkinson disease (3) Renal insufficiency (4) BPH (benign prostatic hyperplasia) Problem Qualifiers (1) TIA (transient ischemic attack): Qualified Code: G45.9 - Transient cerebral ischemia, unspecified type Tanvir Serna MD Nov 11, 2016 11:01
--- NOTE | 2016-11-11 13:36 | EC ---
Study Study Date:11/11/2016 STUDY CONCLUSIONS SUMMARY - Left ventricle: The cavity size was normal. Wall thickness was normal. Systolic function was normal. The estimated ejection fraction was in the range of 55% to 60%. Wall motion was normal; there were no regional wall motion abnormalities. - Aortic valve: Mild regurgitation. Valve area: 2.44cm^2 (Vmax). - Mitral valve: Mild regurgitation. Valve area by pressure half-time: 2cm^2. - Tricuspid valve: Mild regurgitation. If LV function is below 40, please consider prescribing an ACEI or ARB or document rationale for non-use. PROCEDURE DATA STUDY STATUS: Elective. Procedure: Transthoracic echocardiography. Image quality was good. Scanning was performed from the parasternal, apical, and subcostal acoustic windows. Study completion: The patient tolerated the procedure well. Transthoracic echocardiography. M-mode, complete 2D, complete spectral Doppler, and color Doppler. Height: Height: 67in. Weight: Weight: 241.5lb. Body mass index: BMI: 37.9kg/m^2. Body surface area: BSA: 2.19m^2. Patient status: Inpatient. CARDIAC ANATOMY LEFT VENTRICLE: The cavity size was normal. Wall thickness was normal. Systolic function was normal. The estimated ejection fraction was in the range of 55% to 60%. Wall motion was normal; there were no regional wall motion abnormalities. AORTIC VALVE: Trileaflet; normal thickness leaflets. Doppler: Transvalvular velocity was within the normal range. There was no stenosis. Mild regurgitation. Valve area: 2.44cm^2 (Vmax). Indexed valve area: 1.11cm^2/m^2 (Vmax). AORTA: Aortic root: The aortic root was normal in size. MITRAL VALVE: Structurally normal valve. Doppler: Transvalvular velocity was within the normal range. There was no evidence for stenosis. Mild regurgitation. Valve area by pressure half-time: 2cm^2. Indexed valve area by pressure half-time: 0.91cm^2/m^2. LEFT ATRIUM: The atrium was normal in size. RIGHT VENTRICLE: The cavity size was normal. Wall thickness was normal. PULMONIC VALVE: Doppler: Transvalvular velocity was within the normal range. There was no evidence for stenosis. No regurgitation. TRICUSPID VALVE: Structurally normal valve. Doppler: Transvalvular velocity was within the normal range. Mild regurgitation. Peak gradient: 18mm Hg (D). PULMONARY ARTERY: The main pulmonary artery was normal-sized. Systolic pressure was within the normal range. RIGHT ATRIUM: The atrium was normal in size. PERICARDIUM: There was no pericardial effusion. SYSTEMIC VEINS: Inferior vena cava: The vessel was normal in size. Patient weight: 241.5lb _Ejection fraction:_ 65-75% _Fractional shortening:_ 32% up to 5Kg 5-11.5Kg 11.6-22.9Kg 23-45Kg 45-57Kg Aortic Root 7-13 <17 13-22 17-27 17-27 LA diam 6-13 <23 24-38 33-47 37-40 RVID 10-17 7-15 7-15 7-18 8-17 LVIDd 12-22 <32 24-38 33-47 37-40 LVPW 2-4 3-6 5-7 6-8 7-8 IVS 2-4 3-6 5-7 6-8 7-8 BASIC MEASUREMENTS ADULT NORMAL Left ventricle LV internal dimension, ED, chordal 49.6 mm 43-52 level, PLAX LV internal dimension, ES, chordal 31.4 mm 23-38 level, PLAX Fractional shortening, chordal level, 37 % >29 PLAX LV posterior wall thickness, ED 10.2 mm IVS/LVPW ratio, ED 1.01 <1.3 Volume, ED, MOD, 1-plane 84 ml Volume, ES, MOD, 1-plane 29 ml Ejection fraction, MOD, 1-plane 65 % Stroke volume, MOD, 1-plane 55 ml Volume index, ED, MOD, 1-plane 38 ml/m^2 Volume index, ES, MOD, 1-plane 13 ml/m^2 Stroke index, MOD, 1-plane 25.1 ml/m^2 Ventricular septum Septal thickness, ED 10.3 mm Aortic valve Leaflet separation 18 mm 15-26 Left atrium Anterior-posterior dimension 26 mm Anterior-posterior dimension index 1.19 cm/m^2 <2.2 Right ventricle RV internal dimension, ED, PLAX 28.8 mm 19-38 BASIC MEASUREMENTS ADULT NORMAL Aortic valve Leaflet separation 18 mm 15-26 Aorta Root diameter, ED 29 mm 20-37 DOPPLER MEASUREMENTS ADULT NORMAL Aortic valve Peak velocity, S 134 cm/s Valve area, Vmax 2.44 cm^2 Valve area index, Vmax 1.11 cm^2/m^2 Regurgitant velocity, ED 251 cm/s Regurgitant deceleration 1310 cm/s^2 Regurgitant pressure half-time 560 ms Regurgitant gradient, ED 25 mm Hg Mitral valve Peak E-wave velocity 53.8 cm/s Peak A-wave velocity 95.8 cm/s Pressure half-time 110 ms Peak E/A ratio 0.6 Valve area, pressure half-time 2 cm^2 Valve area index, pressure half-time 0.91 cm^2/m^2 Tricuspid valve Peak gradient, D 18 mm Hg Maximal inflow velocity 211 cm/s Pulmonic valve Peak velocity, S 74.7 cm/s Acceleration time 736 ms LEGEND: Mean values are shown as u=mean value. Asterisk (*) huerta values outside specified normal range. Prepared and signed by Tanvir Serna [id number]
--- NOTE | 2016-11-11 14:00 | EKG ---
Date Performed: 11/10/2016 Time Performed: 12:05:18 PTAGE: 86 years EKG: SINUS BRADYCARDIA WITH SINUS ARRHYTHMIA POSSIBLE INFERIOR MYOCARDIAL INFARCTION ABNORMAL EC G NO PREVIOUS TRACING DOCTOR: Mike Gonzales Interpretating Date/Time 11/11/2016 13:58:50
[2016-11-11] MEDS ORDERED: LISINOPRIL 10 MG TAB PO ONE (15:15)
--- NOTE | 2016-11-11 17:03 | HHI.PR ---
Subjective Remarks Negative work up for CVA. He has bradycardia and HTN Urgency during his stay thus far. These should be stabilized further prior to discharge. No further neurological deficit episodes. He feels at baseline. Objective Vital Signs Date Time Temp Pulse Resp B/P Pulse Ox O2 Delivery O2 Flow Rate FiO2 11/11/16 15:50 95.6 59 20 174/72 97 11/11/16 12:04 95.8 44 20 146/58 98 11/11/16 08:08 96.4 76 20 201/80 97 11/11/16 04:00 95.7 45 18 133/62 96 11/11/16 03:30 37 11/11/16 00:00 96.1 44 18 119/52 99 125/63 Manual Cuff/Palpation 11/10/16 20:00 96.3 46 18 176/70 95 11/10/16 18:30 96.2 48 20 232/102 96 232/102 200/90 11/10/16 17:51 98.4 46 14 173/85 97 11/10/16 17:00 48 16 162/82 97 Room Air I/O 11/10/16 11/10/16 11/10/16 11/11/16 11/11/16 11/11/16 07:00 15:00 23:00 07:00 15:00 23:00 Intake Total 1115 ml Output Total 300 ml Balance -300 ml 1115 ml Intake Oral 460 ml IV Total 655 ml Output Urine Total 300 ml # Voids 1 2 # Bowel Movements 0 0 Result Diagram: 11/11/16 0731 11/11/16 0831 Imaging Last Impressions Head Magnetic Resonance Angiography 11/10/161933 Signed Impressions: Service Date/Time: Thursday, November 10, 2016 23:38 - CONCLUSION: Narrowing involving the right P2, right M1, and left A1 segments of uncertain significance. No obvious aneurysm. Marshall Huber MD Neck Magnetic Resonance Angiography 11/10/161902 Signed Impressions: Service Date/Time: Thursday, November 10, 2016 23:38 - CONCLUSION: Normal examination. Marshall Huber MD Brain MRI 11/10/161902 Signed Impressions: Service Date/Time: Thursday, November 10, 2016 23:38 - CONCLUSION: Normal examination. Marshall Huber MD Head CT 11/10/16 1043 Signed Impressions: Service Date/Time: Thursday, November 10, 2016 11:16 - CONCLUSION: Intracranial contents are unremarkable. Prominent apparent venous lakes both occipital bones. Cristhian Sharma MD FACR Chest X-Ray 11/10/16 1043 Signed Impressions: Service Date/Time: Thursday, November 10, 2016 10:58 - CONCLUSION: The lungs are clear. Alejandro Carter MD Carotid Artery Ultrasound 11/10/16 0000 Signed Impressions: Service Date/Time: Thursday, November 10, 2016 16:20 - CONCLUSION: There is a mild calcification in the region of the right carotid bulb. Hemodynamic profile on both sides is characteristic of less than 50%% stenosis. Alejandro Carter MD Objective Remarks GENERAL: NAD, A&Ox3 SKIN: Warm and dry. HEAD: Normocephalic. EYES: No scleral icterus. No injection or drainage. NECK: Supple, trachea midline. No JVD or lymphadenopathy. CARDIOVASCULAR: Regular rate and rhythm without murmurs, gallops, or rubs. RESPIRATORY: Breath sounds equal bilaterally. No accessory muscle use. GASTROINTESTINAL: Abdomen soft, non-tender, nondistended. MUSCULOSKELETAL: No cyanosis, or edema. Stiff (parkinson's disease). BACK: Nontender without obvious deformity. No CVA tenderness. Medications and IVs Administered Medications Medications (Trade) Dose Ordered Sig/Damian Route PRN Reason Start Time Stop Time Status Last Admin Dose Admin Sodium Chloride (NS Flush) 2 ml BID IV FLUSH 11/10/16 21:00 11/11/16 08:56 Enalaprilat (Vasotec Inj) 1.25 mg Q4H PRN IV For SBP >/= 180 or DBP >/= 100 11/10/16 14:30 11/11/16 08:55 Atorvastatin Calcium (Lipitor) 10 mg HS PO 11/10/16 21:00 11/10/16 23:17 Carbidopa/Levodopa (Sinemet 25-100 Mg) 1 tab QID PO 11/10/16 18:00 11/11/16 12:53 Celecoxib (CeleBREX) 200 mg BID PO 11/10/16 21:00 11/11/16 08:49 Cyanocobalamin (Vitamin B12) 2,500 mcg DAILY PO 11/11/16 09:00 11/11/16 08:49 Donepezil HCl (Aricept) 10 mg HS PO 11/10/16 21:00 11/10/16 23:17 Gabapentin (Neurontin) 300 mg HS PO 11/10/16 21:00 11/10/16 23:16 Vit C/Vit E/Zinc/ Copper/Lutein (Ocuvite) 1 tab DAILY PO 11/11/16 09:00 11/11/16 08:49 Tamsulosin HCl (Flomax) 0.4 mg HS PO 11/10/16 21:00 11/10/16 23:17 Famotidine (Pepcid) 10 mg BID PO 11/10/16 21:00 11/11/16 08:50 Miscellaneous (Pill Splitter) 1 ea UNSCH PRN OTHER SEE LABEL COMMENTS 11/10/16 17:15 11/11/16 08:49 Aspirin 325 mg 325 mg DAILY PO 11/11/16 09:00 11/11/16 08:55 Sodium Chloride (NS 1000 ml Inj) 1,000 ml @ 75 mls/hr [id number] IV 11/10/16 20:00 11/11/16 16:15 A/P Problem List: (1) TIA (transient ischemic attack) ICD Code: G45.9 Assessment & Plan: Negative work up for CVA Aspirin Neurology following (2) Parkinson disease ICD Code: G20 Assessment & Plan: Monitor Continue baseline treatments (3) Renal insufficiency ICD Code: N28.9 Assessment & Plan: Improving Follow renal function (4) BPH (benign prostatic hyperplasia) ICD Code: N40.0 Assessment & Plan: At baseline No change to baseline treatments (5) Bradycardia ICD Code: R00.1 Assessment & Plan: Follow on telemetry Holter monitor planned Cardiology following Echo showed no pathology to warrant further inpatient work up (6) Hypertension, uncontrolled ICD Code: I10 Assessment & Plan: Follow BP Lisinopril started Follow renal function Problem Qualifiers (1) TIA (transient ischemic attack): Qualified Code: G45.9 - Transient cerebral ischemia, unspecified type Navarro Oro MD Nov 11, 2016 17:03
[2016-11-11] MEDS: TAMSULOSIN HCL 0.4 MG CAP PO SCH (22:59)
[2016-11-11] MEDS: ATORVASTATIN 10 MG TAB PO SCH (22:59)
[2016-11-11] MEDS: DONEPEZIL HCL 5 MG TAB PO SCH (22:59)
[2016-11-11] MEDS: GABAPENTIN 300 MG CAP PO SCH (23:00)
[2016-11-12] VITALS (7 sets, daily range): BP systolic 124–217; BP diastolic 51–89; PULSE 47–73; RESP 18–22; TEMP 96.9–97.7; O2SAT 95–100
[2016-11-12] MEDS: ENALAPRILAT 1.25 MG/ML VIAL IV PRN (05:14)
[2016-11-12] MEDS: SODIUM CHLOR 0.9% 1000 ML INJ 1,000 ML IV SCH ×2 (05:15→12:00)
--- NOTE | 2016-11-12 07:59 | HHI.PR ---
Subjective Remarks sb 40s Objective Vital Signs Date Time Temp Pulse Resp B/P Pulse Ox O2 Delivery O2 Flow Rate FiO2 11/12/16 04:00 97.5 54 20 185/74 95 11/12/16 00:00 97.1 58 20 142/89 97 217/82 11/11/16 20:00 97.0 52 20 188/73 97 202/70 11/11/16 15:50 95.6 59 20 174/72 97 11/11/16 12:04 95.8 44 20 146/58 98 11/11/16 08:55 40 11/11/16 08:08 96.4 76 20 201/80 97 I/O 11/11/16 11/11/16 11/11/16 11/12/16 11/12/16 11/12/16 07:00 15:00 23:00 07:00 15:00 23:00 Intake Total 1355 ml Output Total 300 ml 150 ml 175 ml Balance -300 ml 1205 ml -175 ml Intake Oral 700 ml IV Total 655 ml Output Urine Total 300 ml 150 ml 175 ml # Voids 5 3 # Bowel Movements 0 0 0 Result Diagram: 11/11/16 0731 11/11/16 0831 Objective Remarks awake confused aguila moves all well speech clear gait does well with minimal assist can take large steps Assessment and Plan Assessment and Plan imp major left mca tia asa ldl ok could dc statin have cards see for ?sss the cleared fu echo nl oob ambulate i can fu office for dementia and pd and try and tune up PT could dc if holter on and on 325 asa a day if bp better still too high ok to run 120-140/ check standing bp LH on standing i dced aricept and see if hr increases watch for any inc dementia Mike Adams MD Nov 12, 2016 07:59
[2016-11-12] MEDS: CYANOCOBALAMIN 1,000 MCG TAB PO SCH (08:38)
[2016-11-12] MEDS: ASPIRIN EC 325 MG TABEC PO SCH (08:38)
[2016-11-12] MEDS: FAMOTIDINE 20 MG TAB PO SCH ×2 (08:38→22:11)
[2016-11-12] MEDS: CARBIDOPA/LEVODOPA 25 MG/100 MG TAB PO SCH ×4 (08:38→22:11)
[2016-11-12] MEDS: MULTIVITAMIN-OPHTHALMIC 1 TAB PO SCH (08:38)
[2016-11-12] MEDS: CELECOXIB 200 MG CAP PO SCH ×2 (08:38→22:11)
[2016-11-12] MEDS: SODIUM CHLORIDE 0.9% FLUSH 10 ML FLUSH IV FLUSH SCH ×2 (08:39→21:00)
[2016-11-12] MEDS ORDERED: LISINOPRIL 10 MG TAB PO SCH (09:00)
[2016-11-12] MEDS ORDERED: LISINOPRIL 20 MG TAB PO SCH (09:00)
[2016-11-12 10:05] LABS: RAPID PLASMA REAGIN SCREEN NON-REACTIVE (NON-REACTVE)
[2016-11-12 10:49] LABS: ANA SCREEN NEG (NEG)
[2016-11-12] MEDS ORDERED: cloNIDine HCL 0.1 MG TAB PO PRN (11:15)
--- NOTE | 2016-11-12 16:54 | HHI.PR ---
Subjective Remarks HTN is not yet to recommended range of 120-140 mmhg Systolic. Further adjustments to BP treatments are ongoing. Patient has no new complaints. Objective Vital Signs Date Time Temp Pulse Resp B/P Pulse Ox O2 Delivery O2 Flow Rate FiO2 11/12/16 14:39 73 11/12/16 12:24 97.5 54 18 184/70 98 124/60 11/12/16 10:16 97.2 58 18 178/72 96 127/56 11/12/16 04:00 97.5 54 20 185/74 95 11/12/16 00:00 97.1 58 20 142/89 97 217/82 11/11/16 20:00 97.0 52 20 188/73 97 202/70 I/O 11/11/16 11/11/16 11/11/16 11/12/16 11/12/16 11/12/16 07:00 15:00 23:00 07:00 15:00 23:00 Intake Total 1355 ml Output Total 300 ml 150 ml 175 ml Balance -300 ml 1205 ml -175 ml Intake Oral 700 ml IV Total 655 ml Output Urine Total 300 ml 150 ml 175 ml # Voids 5 3 1 # Bowel Movements 0 0 0 1 Result Diagram: 11/11/16 0731 11/11/16 0831 Objective Remarks GENERAL: NAD, A&Ox3 SKIN: Warm and dry. HEAD: Normocephalic. EYES: No scleral icterus. No injection or drainage. NECK: Supple, trachea midline. No JVD or lymphadenopathy. CARDIOVASCULAR: Regular rate and rhythm without murmurs, gallops, or rubs. RESPIRATORY: Breath sounds equal bilaterally. No accessory muscle use. GASTROINTESTINAL: Abdomen soft, non-tender, nondistended. MUSCULOSKELETAL: No cyanosis, or edema. Stiff (parkinson's disease). BACK: Nontender without obvious deformity. No CVA tenderness. Medications and IVs Administered Medications Medications (Trade) Dose Ordered Sig/Damian Route PRN Reason Start Time Stop Time Status Last Admin Dose Admin Sodium Chloride (NS Flush) 2 ml BID IV FLUSH 11/10/16 21:00 11/12/16 08:39 Sodium Chloride (NS Flush) 2 ml UNSCH PRN IV FLUSH FLUSH AFTER USING IV ACCESS 11/10/16 14:30 11/12/16 05:15 Enalaprilat (Vasotec Inj) 1.25 mg Q4H PRN IV For SBP >/= 180 or DBP >/= 100 11/10/16 14:30 11/12/16 05:14 Atorvastatin Calcium (Lipitor) 10 mg HS PO 11/10/16 21:00 11/11/16 22:59 Carbidopa/Levodopa (Sinemet 25-100 Mg) 1 tab QID PO 11/10/16 18:00 11/12/16 12:14 Celecoxib (CeleBREX) 200 mg BID PO 11/10/16 21:00 11/12/16 08:38 Cyanocobalamin (Vitamin B12) 2,500 mcg DAILY PO 11/11/16 09:00 11/12/16 08:38 Gabapentin (Neurontin) 300 mg HS PO 11/10/16 21:00 11/11/16 23:00 Vit C/Vit E/Zinc/ Copper/Lutein (Ocuvite) 1 tab DAILY PO 11/11/16 09:00 11/12/16 08:38 Tamsulosin HCl (Flomax) 0.4 mg HS PO 11/10/16 21:00 11/11/16 22:59 Famotidine (Pepcid) 10 mg BID PO 11/10/16 21:00 11/12/16 08:38 Miscellaneous (Pill Splitter) 1 ea UNSCH PRN OTHER SEE LABEL COMMENTS 11/10/16 17:15 11/11/16 08:49 Aspirin 325 mg 325 mg DAILY PO 11/11/16 09:00 11/12/16 08:38 Sodium Chloride (NS 1000 ml Inj) 1,000 ml @ 75 mls/hr [id number] IV 11/10/16 20:00 11/12/16 05:15 Lisinopril (Prinivil) 20 mg DAILY PO 11/12/16 09:00 11/12/16 08:38 A/P Problem List: (1) TIA (transient ischemic attack) ICD Code: G45.9 Assessment & Plan: Negative work up for CVA Aspirin Neurology following No further symptoms (2) Parkinson disease ICD Code: G20 Assessment & Plan: Monitor Continue baseline treatments (3) Renal insufficiency ICD Code: N28.9 Assessment & Plan: Improving Follow renal function (4) BPH (benign prostatic hyperplasia) ICD Code: N40.0 Assessment & Plan: At baseline No change to baseline treatments (5) Bradycardia ICD Code: R00.1 Assessment & Plan: Follow on telemetry Holter monitor planned Cardiology following Echo showed no pathology to warrant further inpatient work up (6) Hypertension, uncontrolled ICD Code: I10 Assessment & Plan: Follow BP Lisinopril increased Clonidine PRN added Follow renal function Problem Qualifiers (1) TIA (transient ischemic attack): Qualified Code: G45.9 - Transient cerebral ischemia, unspecified type Navarro Oro MD Nov 12, 2016 16:54
[2016-11-12] MEDS: GABAPENTIN 300 MG CAP PO SCH (22:11)
[2016-11-12] MEDS: ATORVASTATIN 10 MG TAB PO SCH (22:11)
[2016-11-12] MEDS: TAMSULOSIN HCL 0.4 MG CAP PO SCH (22:12)
[2016-11-13] VITALS: BP 183/76; PULSE 50; RESP 20; TEMP 97.6; O2SAT 97
[2016-11-13 04:00] VITALS: BP_SYST 113; BP_SYST 127; BP_DIAS 76; BP_DIAS 83; PULSE 40; PULSE 50; PULSE 60; RESP 19; RESP 20; TEMP 97; TEMP 97.7; O2SAT 94; O2SAT 97
[2016-11-13 05:10] VITALS: BP 120/80; PULSE 100; RESP 19; TEMP 97; O2SAT 97
[2016-11-13 06:00] VITALS: BP 111/53; PULSE 56; RESP 19; TEMP 97.2; O2SAT 97
--- NOTE | 2016-11-13 06:11 | HHI.PR ---
Addendum to Inpatient Note Addendum Reason: Additional Documentation Additional Information I received a call from the patient's nurse at about 5:30 this morning. The patient had an episode of second degree type 2 heart block noted on cardiac telemetry with heart rate in the 50's. Vital signs were stable and the heart rate was 100 by the time the nurse went to check the patient's vitals. The patient did not have any dizziness, chest pain, or shortness of breath per RN. I have ordered a stat 12 lead EKG, cbc, bmp, mag level, and troponin I. The patient had TSH of 0.965 and free T4 of 0.89 on 11/10. Will follow results. I have also asked nursing to contact the patient's consulting hand mold maker to notify him as well. I discussed the above with my supervising physician Dr. Márquez and she is in agreement with plan. . Radha Pérez Nov 13, 2016 06:11
[2016-11-13 07:59] LABS: HEMATOCRIT 35.7 % (39.0-51.0); MEAN CELL VOLUME 86.1 FL (80.0-100.0); MEAN CORPUSCULAR HGB CONC 33.7 % (32.0-36.0); PLATELET COUNT 125 TH/MM3 (150-450); RED BLOOD COUNT 4.14 MIL/MM3 (4.50-5.90); RED CELL DISTRIBUTION WIDTH 13.8 % (11.6-17.2); REVIEW FLAG FINAL
[2016-11-13 08:00] VITALS: BP 179/68; PULSE 48; RESP 19; TEMP 98.2; O2SAT 98
[2016-11-13 08:23] LABS: ANION GAP 8 MEQ/L (5-15); BICARBONATE 25.1 MEQ/L (21.0-32.0); BLOOD UREA NITROGEN 26 MG/DL (7-18); CHLORIDE 108 MEQ/L (98-107); GLOMERULAR FILTRATION RATE 56 ML/MIN (>89); POTASSIUM 4.1 MEQ/L (3.5-5.1); SODIUM (NA) 141 MEQ/L (136-145)
[2016-11-13] MEDS ORDERED: LISINOPRIL 20 MG TAB PO SCH (09:00)
[2016-11-13] MEDS: SODIUM CHLORIDE 0.9% FLUSH 10 ML FLUSH IV FLUSH SCH (09:00)
[2016-11-13] MEDS ORDERED: LISI-515 PO (09:37)
[2016-11-13] MEDS ORDERED: Aspirin Ec PO (10:09)
--- NOTE | 2016-11-13 10:18 | HHI.DS ---
Discharge Summary Admission Date Nov 10, 2016 at 14:47 Discharge Date: Nov 13, 2016 Admitting Diagnosis TIA (1) TIA (transient ischemic attack) ICD Code: G45.9 (2) Renal insufficiency ICD Code: N28.9 Diagnosis: Secondary (3) Parkinson disease ICD Code: G20 Diagnosis: Secondary (4) BPH (benign prostatic hyperplasia) ICD Code: N40.0 Diagnosis: Secondary Procedures none Brief History - From Admission Mr. Medina is an 86 year old male. He has a history of Parkinsons Disease and BPH. He remains ambulatory. While ambulating with his family today, he had an acute onset of right arm and leg flacidity and numbness and incoherent speech. His family called 911 and report that within 5-10 minutes his symptoms had resolved. He can not recall a specific prior motor/speech related event. He has had transient events related to balance and memory before. When seen in the ER, he is at baseline status. No complaints of headache or residual deficits. CBC/BMP: 11/13/16 0727 11/13/16 0727 Significant Findings Laboratory Tests Test 11/10/16 11/10/16 11/11/16 11/11/16 10:50 11:15 07:31 08:31 Red Blood Count 4.37 MIL/MM3 (4.50-5.90) Hemoglobin 12.6 GM/DL (13.0-17.0) Hematocrit 37.5 % (39.0-51.0) Platelet Count 127 TH/MM3 134 TH/MM3 (150-450) (150-450) Monocytes (%) (Auto) 9.1 % (0.0-8.0) 9.8 % (0.0-8.0) Blood Urea Nitrogen 28 MG/DL (7-18) 22 MG/DL (7-18) Creatinine 1.56 MG/DL 1.35 MG/DL (0.60-1.30) (0.60-1.30) Estimat Glomerular Filtration 43 ML/MIN (>89) 50 ML/MIN (>89) Rate Random Glucose 118 MG/DL (74-106) Total Bilirubin 1.2 MG/DL (0.2-1.0) Aspartate Amino Transf 13 U/L (15-37) (AST/SGOT) Alanine Aminotransferase 9 U/L (12-78) (ALT/SGPT) Troponin I LESS THAN 0.02 NG/ML (0.02-0.05) Triglycerides Level 229 MG/DL 202 MG/DL (42-150) (42-150) HDL Cholesterol 35.5 MG/DL 33.5 MG/DL (40.0-60.0) (40.0-60.0) Vitamin B12 Level GREATER THAN 2000 PG/ML (193-986) Urine Mucus FEW /lpf (OCC) Neutrophils (%) (Auto) 72.2 % (16.0-70.0) Lymphocytes # (Auto) 0.9 TH/MM3 (1.0-4.8) Test 11/13/16 07:27 Red Blood Count 4.14 MIL/MM3 (4.50-5.90) Hemoglobin 12.0 GM/DL (13.0-17.0) Hematocrit 35.7 % (39.0-51.0) Platelet Count 125 TH/MM3 (150-450) Chloride Level 108 MEQ/L (98-107) Blood Urea Nitrogen 26 MG/DL (7-18) Estimat Glomerular Filtration 56 ML/MIN (>89) Rate Troponin I LESS THAN 0.02 NG/ML (0.02-0.05) Imaging Last Impressions Head Magnetic Resonance Angiography 11/10/161933 Signed Impressions: Service Date/Time: Thursday, November 10, 2016 23:38 - CONCLUSION: Narrowing involving the right P2, right M1, and left A1 segments of uncertain significance. No obvious aneurysm. Marshall Huber MD Neck Magnetic Resonance Angiography 11/10/161902 Signed Impressions: Service Date/Time: Thursday, November 10, 2016 23:38 - CONCLUSION: Normal examination. Marshall Huber MD Brain MRI 11/10/161902 Signed Impressions: Service Date/Time: Thursday, November 10, 2016 23:38 - CONCLUSION: Normal examination. Marshall Huber MD Head CT 11/10/16 1043 Signed Impressions: Service Date/Time: Thursday, November 10, 2016 11:16 - CONCLUSION: Intracranial contents are unremarkable. Prominent apparent venous lakes both occipital bones. Cristhian Sharma MD FACR Chest X-Ray 11/10/16 1043 Signed Impressions: Service Date/Time: Thursday, November 10, 2016 10:58 - CONCLUSION: The lungs are clear. Alejandro Carter MD Carotid Artery Ultrasound 11/10/16 0000 Signed Impressions: Service Date/Time: Thursday, November 10, 2016 16:20 - CONCLUSION: There is a mild calcification in the region of the right carotid bulb. Hemodynamic profile on both sides is characteristic of less than 50%% stenosis. Alejandro Carter MD PE at Discharge GENERAL: NAD SKIN: Warm and dry. HEAD: Normocephalic. EYES: No scleral icterus. No injection or drainage. NECK: Supple, trachea midline. No JVD or lymphadenopathy. CARDIOVASCULAR: Regular rate and rhythm without murmurs, gallops, or rubs. RESPIRATORY: Breath sounds equal bilaterally. No accessory muscle use. GASTROINTESTINAL: Abdomen soft, non-tender, nondistended. MUSCULOSKELETAL: No cyanosis, or edema. Stiffness related to parkinson's disease. BACK: Nontender without obvious deformity. No CVA tenderness. Pt update on day of discharge BP now controlled. Medically stable for discharge. Hospital Course Mr. Medina is an 86 year old male. He is here for a TIA evaluation which is complicated by underlying parkinsons disease. He has no prior history of CVA. Evaluation showed no ischemic evidence in the brain. He is started on a daily aspirin. Uncontrolled BP had been a problem while here. He has been adjusted up to 40mg of lisinopril once daily without any compromise in renal function ( renal function has been improving compared to admit). Blood pressures are not under control and patient is medically stable for discharge to home. Pt Condition on Discharge: Stable Discharge Disposition: Discharge Home Discharge Time: <= 30 minutes Discharge Instructions DIET: Follow Instructions for: As Tolerated, No Restrictions Speech Therapy-Diet Recommends: Regular Activities you can perform: Regular-No Restrictions Follow up Referrals: PCP Follow-up - 1 Week New Medications: Lisinopril (Lisinopril) 20 Mg Tab 40 MG PO DAILY Blood Pressure Management #30 TAB ([Aspirin Ec]) 325 MG TABEC 325 MG PO DAILY Blood Clot Prevention #30 TAB.EC Continued Medications: Carbidopa-Levodopa (Sinemet) 25-100 Mg Tab 1 TAB PO QID Parkinson Disease Mgmt #90 Ref 0 TAB Carboxymethylcellulose Sodium Opth Drops (Theratears Unit-Dose Opth Drops) 0.25 % Soln 1 DROP EACH EYE Q4H PRN DRY EYE #1 Ref 0 BOX Celecoxib (Celebrex) 200 Mg Cap 200 MG PO BID Pain Management Ref 0 CAP Cyanocobalamin (Vitamin B-12) 2,500 Mcg Subl 2500 MCG SL DAILY Nutritional Supplement Ref 0 TAB.SL Donepezil (Donepezil) 10 Mg Tab 10 MG PO HS Dementia #30 Ref 0 TAB Gabapentin (Gabapentin) 400 Mg Cap 400 CAP PO HS #30 Ref 0 CAP Glucosamine-Chondroitin (Osteo Bi-Flex Regular Strength) 250-200 Tab 1 TAB PO DAILY Multiple Vitamins W/ Minerals (Ocuvite) 1 Tab 1 TAB PO DAILY Nutritional Supplement Ref 0 TAB Ranitidine (Zantac) 150 Mg Tab 150 MG PO DAILY Reduce Stomach Acid #30 Ref 0 TAB Tamsulosin (Flomax) 0.4 Mg Cap 0.4 MG PO HS Manage Prostate Problems #30 Ref 0 CAP Navarro Oro MD Nov 13, 2016 10:18
[2016-11-13] MEDS: MULTIVITAMIN-OPHTHALMIC 1 TAB PO SCH (10:45)
[2016-11-13] MEDS: FAMOTIDINE 20 MG TAB PO SCH (10:45)
[2016-11-13] MEDS: CARBIDOPA/LEVODOPA 25 MG/100 MG TAB PO SCH ×2 (10:45→13:48)
[2016-11-13] MEDS: CELECOXIB 200 MG CAP PO SCH (10:46)
[2016-11-13] MEDS: CYANOCOBALAMIN 1,000 MCG TAB PO SCH (10:46)
[2016-11-13] MEDS: ASPIRIN EC 325 MG TABEC PO SCH (10:46)
[2016-11-13] MEDS ORDERED: DONEPEZIL HCL 5 MG TAB PO ONE (11:00)
--- NOTE | 2016-11-13 11:06 | PD.CARD.PN ---
Subjective Subjective Remarks No complaints. No syncope or presyncope. No chest pain or dyspnea. Objective Medications Current Medications Medications (Trade) Dose Ordered Sig/Damian Route Start Time Stop Time Status Last Admin (Tylenol) 650 mg Q4H PRN PO 11/10/16 14:30 (Zofran Inj) 4 mg Q6H PRN IVP 11/10/16 14:30 (Narcan Inj) 0.4 mg UNSCH PRN IV 11/10/16 14:30 (NS Flush) 2 ml BID IV FLUSH 11/10/16 21:00 11/12/16 08:39 (NS Flush) 2 ml UNSCH PRN IV FLUSH 11/10/16 14:30 11/12/16 05:15 (Vasotec Inj) 1.25 mg Q4H PRN IV 11/10/16 14:30 11/12/16 05:14 (Lipitor) 10 mg HS PO 11/10/16 21:00 11/12/16 22:11 (Sinemet 25-100 Mg) 1 tab QID PO 11/10/16 18:00 11/13/16 10:45 (CeleBREX) 200 mg BID PO 11/10/16 21:00 11/13/16 10:46 (Vitamin B12) 2,500 mcg DAILY PO 11/11/16 09:00 11/13/16 10:46 (Neurontin) 300 mg HS PO 11/10/16 21:00 11/12/16 22:11 (Ocuvite) 1 tab DAILY PO 11/11/16 09:00 11/13/16 10:45 (Flomax) 0.4 mg HS PO 11/10/16 21:00 11/12/16 22:12 (Tears Naturale Opth Soln) 1 drop Q4H PRN EACH EYE 11/10/16 17:15 (Pepcid) 10 mg BID PO 11/10/16 21:00 11/13/16 10:45 (Pill Splitter) 1 ea UNSCH PRN OTHER 11/10/16 17:15 11/11/16 08:49 Aspirin 325 mg 325 mg DAILY PO 11/11/16 09:00 11/13/16 10:46 (NS 1000 ml Inj) 1,000 ml @ 75 mls/hr [id number] IV 11/10/16 20:00 11/12/16 05:15 (Catapres) 0.1 mg Q6H PRN PO 11/12/16 11:15 11/12/16 23:45 (Prinivil) 40 mg DAILY PO 11/13/16 09:00 11/13/16 10:46 Vital Signs / I&O Vital Signs Date Time Temp Pulse Resp B/P Pulse Ox O2 Delivery O2 Flow Rate FiO2 11/13/16 08:00 98.2 48 19 179/68 98 11/13/16 06:00 97.2 56 19 111/53 97 11/13/16 05:10 97.0 100 19 120/80 97 11/13/16 04:00 40 11/13/16 04:00 97.7 60 20 127/83 94 11/13/16 04:00 97.0 50 19 113/76 97 11/13/16 00:00 97.6 50 20 183/76 97 11/12/16 20:00 97.7 52 22 198/69 100 11/12/16 16:30 96.9 47 18 183/73 98 133/51 11/12/16 14:39 73 11/12/16 12:24 97.5 54 18 184/70 98 124/60 I/O 11/12/16 11/12/16 11/12/16 11/13/16 11/13/16 11/13/16 07:00 15:00 23:00 07:00 15:00 23:00 Intake Total 1155 ml Output Total 175 ml 650 ml Balance -175 ml 1155 ml -650 ml IV Total 1155 ml Output Urine Total 175 ml 650 ml # Voids 3 2 1 # Bowel Movements 0 1 Physical Exam Alert Chest clear CV S1S2 RRR Abd soft Ect no edema Nurse called me 6AM for "Mobitz 2". No strips showing that. Only SR to sinus aguila with PAC's Holter not processed yet Laboratory Laboratory Tests Test 11/13/16 07:27 White Blood Count 8.0 TH/MM3 Red Blood Count 4.14 MIL/MM3 Hemoglobin 12.0 GM/DL Hematocrit 35.7 % Mean Corpuscular Volume 86.1 FL Mean Corpuscular Hemoglobin 29.0 PG Mean Corpuscular Hemoglobin 33.7 % Concent Red Cell Distribution Width 13.8 % Platelet Count 125 TH/MM3 Mean Platelet Volume 9.0 FL Sodium Level 141 MEQ/L Potassium Level 4.1 MEQ/L Chloride Level 108 MEQ/L Carbon Dioxide Level 25.1 MEQ/L Anion Gap 8 MEQ/L Blood Urea Nitrogen 26 MG/DL Creatinine 1.23 MG/DL Estimat Glomerular Filtration 56 ML/MIN Rate Random Glucose 95 MG/DL Calcium Level 8.9 MG/DL Magnesium Level 2.0 MG/DL Troponin I LESS THAN 0.02 NG/ML Assessment and Plan Problem List: (1) TIA (transient ischemic attack) (2) Parkinson disease (3) Renal insufficiency (4) BPH (benign prostatic hyperplasia) (5) Bradycardia Assessment and Plan: asymptomatic. No Mobitz 2 identified. Problem Qualifiers (1) TIA (transient ischemic attack): Qualified Code: G45.9 - Transient cerebral ischemia, unspecified type Nicho Kerr MD Nov 13, 2016 11:05
[2016-11-13 12:00] VITALS: BP 177/76; PULSE 50; RESP 19; TEMP 97.6; O2SAT 98
--- NOTE | 2016-11-14 13:27 | EKG ---
Date Performed: 11/13/2016 Time Performed: 06:43:12 PTAGE: 86 years EKG: --- Warning: Data quality may affect interpretation --- Sinus bradycardia with borderline 1 st degree A-V block. Prolonged QT interval Lateral ST-T changes are nonspecific Compared to prior tra cing no significant change Borderline ECG NO PREVIOUS TRACING DOCTOR: Javier Choi Interpretating Date/Time 11/14/2016 13:26:27
--- NOTE | 2016-11-14 14:56 | HM ---
Date Performed: 11/11/2016 Time Performed: 11:13:00 HOOKUP DATE: 11/11/16 11:13:00 AM Kendra ANALYSIS START TIME: 11/11/2016 11:18:00 AM ANALYSIS END TIME: 11/12/2016 11:21:59 AM PATIENT AGE: 86 PATIENT HEIGHT PATIENT WEIGHT DRUG LIST PATIENT DIAGNOSIS: TIA TEST NARRATIVE: The patient's average heart rate was 54 BPM. No episodes of tachycardia wer e noted. Heart rates less than 50 BPM were noted 42% of the time. No pauses exceeding 2.0 second s were noted. 3 ventricular ectopics, which represented < 1% of the total beat count, were noted. The highest ventricular ectopic frequency occurred from 12:00 PM to 01:00 PM Kendra. During this time 1 VE(s) occurred. Ventricular ectopics were observed as 3 isolated beat(s) only. No couplets or ru ns were noted. 117 supraventricular ectopics, which represented < 1% of the total beat count, wer e noted. The highest supraventricular ectopic frequency occurred from 11:00 AM to 12:00 PM Kendra. Dur ing this time 39 SVE(s) occurred. No episodes of ST depression (defined as -1.0 mm or more) were noted in channel 1. No episodes of ST depression (defined as -1.0 mm or more) were noted in channel 2. No episodes of ST depression (defined as -1.0 mm or more) were noted in channel 3. PT DIARY WAS N OT RETURNED WITH HOLTER MONITOR. TEST INTERPRETATION: Agree with the interpretation without alteration Signed by : Javier Choi
[2016-11-16 23:52] LABS: VITAMIN B6 LESS THAN 2.0 ng/mL (2.1-21.7)
== END 2016-11-13 14:09 | disposition home or self-care (01) | DRG 69 ==
LOC: NEPC 10:02 → NEDA 13:21 → OBSVTOIN 14:47 → N05B 18:27
PROVIDERS: ADMIT Hospitalist; ATTEND Hospitalist
DX: G45.9 Transient cerebral ischemic attack, unspecified (principal); G20 Parkinson's disease; F03.90 Unspecified dementia, unspecified severity, without behavioral disturbance, psychotic disturbance, mood disturbance, and anxiety; I44.1 Atrioventricular block, second degree; R47.01 Aphasia; R47.1 Dysarthria and anarthria; Z86.73 Personal history of transient ischemic attack (TIA), and cerebral infarction without residual deficits; Z88.0 Allergy status to penicillin; N40.0 Benign prostatic hyperplasia without lower urinary tract symptoms; Z87.891 Personal history of nicotine dependence; E86.0 Dehydration; E78.00 Pure hypercholesterolemia, unspecified; G25.0 Essential tremor; K21.9 Gastro-esophageal reflux disease without esophagitis; I16.0 Hypertensive urgency
CPT/HCPCS: 70450; 70544; 70548; 70553; 71010; 80048; 80053; 80061; 81001; 82550; 82607; 82746; 82948; 83735; 83921; 84207; 84425; 84439; 84443; 84484; 85025; 85027; 85610; 85652; 85730; 86038; 86592; 93005; 93225; 93226; 93306; 93880; A9577; A9579; J7030